=== PATIENT | male | born 1955 | race Caucasian/White ===

== ENCOUNTER 2021-09-11 01:48 | Inpatient (IN) ==
[2021-09-12] MEDS ORDERED: Naloxone 0.4 MG/ML INJ IVP PRN (07:47)
[2021-09-12] MEDS ORDERED: *HR* Heparin 5,000 UNIT/ML VIAL IVP PRN ×2 (07:50)
[2021-09-12] MEDS ORDERED: Dextrose Gel 15 GM/37.5 ML TUBE PO PRN ×2 (07:52)
[2021-09-12] MEDS ORDERED: *HR* Dextrose 50 % in Water (Syg) 50 ML SYRINGE IVP PRN (07:52)
[2021-09-12] MEDS ORDERED: D5% in Water 1,000 ML IVC PRN (07:52)
[2021-09-12 08:51] LABS: Basophils % 0.6 %; Eosinophils # 0.2 K/mcL (0.0-0.6); Eosinophils % 2.8 %; Hematocrit 35.4 % (37.5-50.1); Hemoglobin 12.6 g/dL (12.9-16.9); Immature Granulocytes % 0.3 % (0-4); Lymphocytes # 1.6 K/mcL (0.6-4.6); Lymphocytes % 24.3 %; Mean Corpuscular HGB Conc 35.6 g/dL (31.6-35.5); Mean Corpuscular Hemoglobin 32.9 pg (28.0-33.3); Mean Corpuscular Volume 92.4 fL (83.0-100.0); Mean Platelet Volume 10.9 fL (9.4-12.4); Monocytes # 0.7 K/mcL (0.0-1.3); Monocytes % 11.3 %; Neutrophils # 3.9 K/mcL (1.6-8.9); Platelet Count 189 K/mcL (140-400); Red Blood Count 3.83 M/mcL (4.19-5.50); Red Cell Distribution Width 13.1 % (11.5-14.5); Segmented Neutrophils % 60.7 %; White Blood Count 6.5 K/mcL (4.3-11.1)
[2021-09-12 08:59] LABS: Heparin anti-factor XA UFH 0.35 IU/mL (0.30-0.70)
[2021-09-12 09:00] LABS: INR 1.2; Prothrombin Time 13.7 Seconds (9.4-12.1)
[2021-09-12 09:12] LABS: Alanine Aminotransferase 50 Units/L (7-52); Albumin 4.1 g/dL (3.5-5.7); Albumin/Globulin Ratio 1.8 (1.1-2.2); Alkaline Phosphatase 116 Units/L (34-104); Aspartate Amino Transferase 31 Units/L (13-39); BUN/Creatinine Ratio 18 (6-26); Bilirubin,Total 0.8 mg/dL (0.3-1.0); Blood Urea Nitrogen 12 mg/dL (8-23); Calcium 9.1 mg/dL (8.6-10.3); Carbon Dioxide 26 mEq/L (23-29); Chloride 90 mEq/L (98-107); Globulin 2.3 g/dL (2.4-3.5); Glucose 155 mg/dL (70-105); Magnesium 1.8 mg/dL (1.6-2.6); Osmolality,Calculated 259 (280-300); Phosphorous 3.7 mg/dL (2.7-4.5); Potassium 3.9 mEq/L (3.5-5.1); Sodium 123 mEq/L (136-145); Total Protein 6.4 g/dL (6.4-8.9); eGFR For African Americans > 60 (> 60); eGFR For Non-African Americans > 60 (> 60)
[2021-09-12] MEDS: Heparin 25,000UNIT/250ML 1/2NS 25,000 UNIT/250 ML IV.SOLN IVC SCH ×2 (10:53→22:52)
[2021-09-12] MEDS ORDERED: Perflutren Lipid Microsphere 1.3 ML in 0.9 % Sodium Chloride 8.7 ML IVP PRN (10:59)
[2021-09-12 12:49] LABS: Thyroid Stimulating Hormone 1.362 mcIU/mL (0.340-5.600)
[2021-09-12] MEDS: Insulin LISPRO 300 UNITS/3 ML VIAL SUBQ SCH ×3 (16:05→21:33)
[2021-09-12 17:32] LABS: Adenovirus Not Detected (Not Detect); Bordetella Pertussis Not Detected (Not Detect); Chlamydophila pneumoniae Not Detected (Not Detect); Coronavirus 229E Not Detected (Not Detect); Coronavirus HKU1 Not Detected (Not Detect); Coronavirus NL63 Not Detected (Not Detect); Coronavirus OC43 Not Detected (Not Detect); Human Metapneumovirus Not Detected (Not Detect); Human Rhinovirus/Enterovirus Not Detected (Not Detect); Influenza A Subtype 2009 H1 Not Detected (Not Detect); Influenza B Not Detected (Not Detect); Mycoplasma pneumoniae Not Detected (Not Detect); Parainfluenza Virus 1 Not Detected (Not Detect); Parainfluenza Virus 2 Not Detected (Not Detect); Parainfluenza Virus 3 Not Detected (Not Detect); Parainfluenza Virus 4 Not Detected (Not Detect); Respiratory Syncytial Virus Not Detected (Not Detect); SARS-CoV-2 Not Detected (Not Detect)
[2021-09-12] MEDS: Insulin DETEMIR 100 UNIT/ML X5UNITS SUBQ SCH (21:33)
[2021-09-13 05:03] LABS: Hematocrit 36.6 % (37.5-50.1); Hemoglobin 12.8 g/dL (12.9-16.9); Mean Corpuscular Hemoglobin 32.4 pg (28.0-33.3); Mean Corpuscular Volume 92.7 fL (83.0-100.0); Mean Platelet Volume 11.3 fL (9.4-12.4); Platelet Count 201 K/mcL (140-400); Red Blood Count 3.95 M/mcL (4.19-5.50); Red Cell Distribution Width 13.1 % (11.5-14.5); White Blood Count 7.6 K/mcL (4.3-11.1)
[2021-09-13 05:11] LABS: Heparin anti-factor XA UFH 0.64 IU/mL (0.30-0.70)
[2021-09-13 05:12] LABS: INR 1.3; Prothrombin Time 14.1 Seconds (9.4-12.1)
[2021-09-13 05:26] LABS: BUN/Creatinine Ratio 18 (6-26); Blood Urea Nitrogen 14 mg/dL (8-23); Calcium 9.2 mg/dL (8.6-10.3); Carbon Dioxide 25 mEq/L (23-29); Chloride 91 mEq/L (98-107); Glucose 217 mg/dL (70-105); Osmolality,Calculated 261 (280-300); Potassium 4.8 mEq/L (3.5-5.1); Sodium 122 mEq/L (136-145); eGFR For African Americans > 60 (> 60); eGFR For Non-African Americans > 60 (> 60)
[2021-09-13] MEDS ORDERED: Furosemide 20 MG/2 ML VIAL IVP ONE (08:18)
[2021-09-13] MEDS ORDERED: Amiodarone Premix 150 MG/100 ML BAG IVPB ONE (09:15)
[2021-09-13] MEDS ORDERED: Amiodarone Premix 360 MG/200 ML BAG IVC ONE (09:15)
[2021-09-13] MEDS ORDERED: Furosemide 40 MG/4 ML VIAL IVP ONE (09:17)
[2021-09-13] MEDS ORDERED: Ondansetron 4 MG/2 ML VIAL IVP PRN (09:27)
[2021-09-13] MEDS: Insulin DETEMIR 100 UNIT/ML X5UNITS SUBQ SCH ×2 (10:14→20:58)
[2021-09-13] MEDS: Insulin LISPRO 300 UNITS/3 ML VIAL SUBQ SCH ×4 (10:15→20:56)
[2021-09-13 10:23] LABS: Estimated Average Glucose 246 mg/dl; Hemoglobin A1C 10.2 %
[2021-09-13] MEDS: Heparin 25,000UNIT/250ML 1/2NS 25,000 UNIT/250 ML IV.SOLN IVC SCH (11:11)
[2021-09-13] MEDS ORDERED: *HR* Digoxin 0.5 MG/2 ML AMPUL IVP ONE (11:25)
[2021-09-13] MEDS: Amiodarone Premix 360 MG/200 ML BAG IVC SCH (17:59)
[2021-09-13] MEDS: *HR* Digoxin 0.5 MG/2 ML AMPUL IVP SCH ×2 (17:59→19:04)
[2021-09-13] MEDS: Gabapentin 300 MG CAPSULE PO SCH (20:55)
[2021-09-14] MEDS: Heparin 25,000UNIT/250ML 1/2NS 25,000 UNIT/250 ML IV.SOLN IVC SCH ×2 (00:48→14:39)
[2021-09-14 02:27] LABS: BUN/Creatinine Ratio 22 (6-26); Blood Urea Nitrogen 18 mg/dL (8-23); Calcium 8.9 mg/dL (8.6-10.3); Carbon Dioxide 21 mEq/L (23-29); Chloride 97 mEq/L (98-107); Glucose 229 mg/dL (70-105); Osmolality,Calculated 263 (280-300); Phosphorous 3.7 mg/dL (2.7-4.5); Potassium 4.3 mEq/L (3.5-5.1); Sodium 122 mEq/L (136-145); eGFR For African Americans > 60 (> 60); eGFR For Non-African Americans > 60 (> 60)
[2021-09-14 02:36] LABS: Basophils # 0.1 K/mcL (0.0-0.2); Basophils % 0.7 %; Eosinophils # 0.1 K/mcL (0.0-0.6); Eosinophils % 1.7 %; Hematocrit 35.5 % (37.5-50.1); Hemoglobin 12.2 g/dL (12.9-16.9); Immature Granulocytes % 0.4 % (0-4); Lymphocytes # 1.7 K/mcL (0.6-4.6); Lymphocytes % 23.5 %; Mean Corpuscular HGB Conc 34.4 g/dL (31.6-35.5); Mean Corpuscular Hemoglobin 32.2 pg (28.0-33.3); Mean Corpuscular Volume 93.7 fL (83.0-100.0); Mean Platelet Volume 11.3 fL (9.4-12.4); Monocytes # 0.7 K/mcL (0.0-1.3); Monocytes % 10.3 %; Neutrophils # 4.5 K/mcL (1.6-8.9); Platelet Count 178 K/mcL (140-400); Red Blood Count 3.79 M/mcL (4.19-5.50); Red Cell Distribution Width 13.1 % (11.5-14.5); Segmented Neutrophils % 63.4 %; White Blood Count 7.1 K/mcL (4.3-11.1)
[2021-09-14] MEDS: Amiodarone Premix 360 MG/200 ML BAG IVC SCH ×2 (06:52→20:07)
[2021-09-14] MEDS: *HR* Digoxin 0.25 MG TABLET PO SCH (09:46)
[2021-09-14] MEDS: Furosemide 40 MG/4 ML VIAL IVP SCH (09:46)
[2021-09-14] MEDS: Gabapentin 300 MG CAPSULE PO SCH ×2 (09:46→20:02)
[2021-09-14] MEDS: Insulin LISPRO 300 UNITS/3 ML VIAL SUBQ SCH ×5 (09:50→20:17)
[2021-09-14] MEDS: Insulin DETEMIR 100 UNIT/ML X5UNITS SUBQ SCH ×2 (09:52→20:03)
[2021-09-14] MEDS ORDERED: Metoprolol XL (24 HR) Succ 25 MG TAB.ER.24H PO SCH (10:15)
[2021-09-14] MEDS: *HR* Amiodarone 200 MG TABLET PO SCH ×2 (11:49→20:02)
[2021-09-14] MEDS: Metoprolol XL (24 HR) Succ 25 MG TAB.ER.24H PO SCH (20:02)
[2021-09-15] MEDS: Heparin 25,000UNIT/250ML 1/2NS 25,000 UNIT/250 ML IV.SOLN IVC SCH ×2 (03:05→16:54)
[2021-09-15 07:20] LABS: Hemoglobin 11.6 g/dL (12.9-16.9)
[2021-09-15 07:40] LABS: BUN/Creatinine Ratio 19 (6-26); Blood Urea Nitrogen 15 mg/dL (8-23); Calcium 8.9 mg/dL (8.6-10.3); Carbon Dioxide 24 mEq/L (23-29); Chloride 94 mEq/L (98-107); Glucose 190 mg/dL (70-105); Magnesium 1.9 mg/dL (1.6-2.6); Osmolality,Calculated 268 (280-300); Phosphorous 3.8 mg/dL (2.7-4.5); Potassium 4.3 mEq/L (3.5-5.1); Sodium 126 mEq/L (136-145); eGFR For African Americans > 60 (> 60); eGFR For Non-African Americans > 60 (> 60)
[2021-09-15] MEDS: Amiodarone Premix 360 MG/200 ML BAG IVC SCH ×2 (08:56→22:12)
[2021-09-15] MEDS: Gabapentin 300 MG CAPSULE PO SCH ×2 (08:56→22:12)
[2021-09-15] MEDS: *HR* Digoxin 0.25 MG TABLET PO SCH (08:56)
[2021-09-15] MEDS: *HR* Amiodarone 200 MG TABLET PO SCH ×2 (08:56→22:11)
[2021-09-15] MEDS: Metoprolol XL (24 HR) Succ 25 MG TAB.ER.24H PO SCH (08:56)
[2021-09-15] MEDS: Furosemide 40 MG/4 ML VIAL IVP SCH (08:56)
[2021-09-15] MEDS: Insulin LISPRO 300 UNITS/3 ML VIAL SUBQ SCH ×7 (09:00→22:11)
[2021-09-15] MEDS: Insulin DETEMIR 100 UNIT/ML X5UNITS SUBQ SCH ×2 (09:00→22:11)
[2021-09-15] MEDS ORDERED: Metoprolol XL (24 HR) Succ 25 MG TAB.ER.24H PO ONE (11:00)
[2021-09-15] MEDS ORDERED: *HR* Warfarin 5 MG TABLET PO ONE (18:00)
[2021-09-15] MEDS: Warfarin perPT PO SCH (18:26)
[2021-09-15] MEDS: Melatonin 3 MG TABLET PO PRN (22:11)
[2021-09-16 01:08] LABS: Hematocrit 32.5 % (37.5-50.1); Hemoglobin 11.3 g/dL (12.9-16.9)
[2021-09-16 01:15] LABS: INR 1.4; Prothrombin Time 15.1 Seconds (9.4-12.1)
[2021-09-16 01:27] LABS: BUN/Creatinine Ratio 16 (6-26); Blood Urea Nitrogen 15 mg/dL (8-23); Calcium 8.8 mg/dL (8.6-10.3); Carbon Dioxide 22 mEq/L (23-29); Chloride 95 mEq/L (98-107); Glucose 284 mg/dL (70-105); Magnesium 1.9 mg/dL (1.6-2.6); Osmolality,Calculated 271 (280-300); Phosphorous 4.2 mg/dL (2.7-4.5); Potassium 4.2 mEq/L (3.5-5.1); Sodium 125 mEq/L (136-145); eGFR For African Americans > 60 (> 60); eGFR For Non-African Americans > 60 (> 60)
[2021-09-16] MEDS: Heparin 25,000UNIT/250ML 1/2NS 25,000 UNIT/250 ML IV.SOLN IVC SCH ×2 (05:18→18:05)
[2021-09-16] MEDS: Gabapentin 300 MG CAPSULE PO SCH ×2 (08:23→20:57)
[2021-09-16] MEDS: *HR* Digoxin 0.25 MG TABLET PO SCH (08:24)
[2021-09-16] MEDS: Furosemide 40 MG/4 ML VIAL IVP SCH (08:24)
[2021-09-16] MEDS: Insulin LISPRO 300 UNITS/3 ML VIAL SUBQ SCH ×7 (08:24→20:58)
[2021-09-16] MEDS: *HR* Amiodarone 200 MG TABLET PO SCH ×2 (08:24→20:57)
[2021-09-16] MEDS: Insulin DETEMIR 100 UNIT/ML X5UNITS SUBQ SCH ×2 (08:32→20:58)
[2021-09-16] MEDS ORDERED: Metoprolol XL (24 HR) Succ 25 MG TAB.ER.24H PO SCH (09:00)
[2021-09-16] MEDS: Amiodarone Premix 360 MG/200 ML BAG IVC SCH (14:20)
[2021-09-16] MEDS ORDERED: *HR* Warfarin 5 MG TABLET PO ONE (18:00)
[2021-09-16] MEDS: Warfarin perPT PO SCH (18:13)
[2021-09-16] MEDS: Metoprolol XL (24 HR) Succ 25 MG TAB.ER.24H PO SCH (20:57)
[2021-09-16] MEDS: Melatonin 3 MG TABLET PO PRN (20:57)
[2021-09-17 01:47] LABS: Hematocrit 33.6 % (37.5-50.1); Hemoglobin 11.7 g/dL (12.9-16.9)
[2021-09-17 01:58] LABS: Heparin anti-factor XA UFH 0.38 IU/mL (0.30-0.70); INR 1.2; Prothrombin Time 13.5 Seconds (9.4-12.1)
[2021-09-17 01:59] LABS: BUN/Creatinine Ratio 18 (6-26); Blood Urea Nitrogen 15 mg/dL (8-23); Calcium 8.9 mg/dL (8.6-10.3); Carbon Dioxide 26 mEq/L (23-29); Chloride 93 mEq/L (98-107); Glucose 278 mg/dL (70-105); Magnesium 1.8 mg/dL (1.6-2.6); Osmolality,Calculated 273 (280-300); Phosphorous 4.2 mg/dL (2.7-4.5); Potassium 4.3 mEq/L (3.5-5.1); Sodium 126 mEq/L (136-145); eGFR For African Americans > 60 (> 60); eGFR For Non-African Americans > 60 (> 60)
[2021-09-17] MEDS: Gabapentin 300 MG CAPSULE PO SCH ×2 (09:00→21:14)
[2021-09-17] MEDS: *HR* Amiodarone 200 MG TABLET PO SCH ×2 (09:01→21:13)
[2021-09-17] MEDS: *HR* Digoxin 0.25 MG TABLET PO SCH (09:01)
[2021-09-17] MEDS: Furosemide 40 MG/4 ML VIAL IVP SCH (09:01)
[2021-09-17] MEDS: Metoprolol XL (24 HR) Succ 25 MG TAB.ER.24H PO SCH ×2 (09:01→21:13)
[2021-09-17] MEDS: Insulin LISPRO 300 UNITS/3 ML VIAL SUBQ SCH ×7 (09:02→21:16)
[2021-09-17] MEDS: Insulin DETEMIR 100 UNIT/ML X5UNITS SUBQ SCH ×2 (09:02→21:14)
[2021-09-17] MEDS ORDERED: Metoprolol XL (24 HR) Succ 25 MG TAB.ER.24H PO ONE (11:03)
[2021-09-17] MEDS: Heparin 25,000UNIT/250ML 1/2NS 25,000 UNIT/250 ML IV.SOLN IVC SCH (12:21)
[2021-09-17] MEDS: Amiodarone Premix 360 MG/200 ML BAG IVC SCH (13:09)
[2021-09-17] MEDS ORDERED: *HR* Warfarin 5 MG TABLET PO ONE (18:00)
[2021-09-17] MEDS: Warfarin perPT PO SCH (18:36)
[2021-09-18] MEDS: Heparin 25,000UNIT/250ML 1/2NS 25,000 UNIT/250 ML IV.SOLN IVC SCH ×2 (00:42→17:32)
[2021-09-18] MEDS: Amiodarone Premix 360 MG/200 ML BAG IVC SCH ×2 (03:39→16:37)
[2021-09-18 07:20] LABS: INR 1.3; Prothrombin Time 14.5 Seconds (9.4-12.1)
[2021-09-18 07:30] LABS: BUN/Creatinine Ratio 20 (6-26); Blood Urea Nitrogen 17 mg/dL (8-23); Calcium 9.1 mg/dL (8.6-10.3); Carbon Dioxide 24 mEq/L (23-29); Chloride 93 mEq/L (98-107); Glucose 161 mg/dL (70-105); Magnesium 1.9 mg/dL (1.6-2.6); Osmolality,Calculated 265 (280-300); Phosphorous 4.2 mg/dL (2.7-4.5); Potassium 4.5 mEq/L (3.5-5.1); Sodium 125 mEq/L (136-145); eGFR For African Americans > 60 (> 60); eGFR For Non-African Americans > 60 (> 60)
[2021-09-18] MEDS: Insulin DETEMIR 100 UNIT/ML X5UNITS SUBQ SCH ×2 (08:56→21:04)
[2021-09-18] MEDS: Furosemide 40 MG/4 ML VIAL IVP SCH ×2 (08:56→21:04)
[2021-09-18] MEDS: Gabapentin 300 MG CAPSULE PO SCH ×2 (08:57→21:00)
[2021-09-18] MEDS: *HR* Amiodarone 200 MG TABLET PO SCH ×2 (08:57→21:04)
[2021-09-18] MEDS: *HR* Digoxin 0.25 MG TABLET PO SCH (08:57)
[2021-09-18] MEDS: Metoprolol XL (24 HR) Succ 25 MG TAB.ER.24H PO SCH ×2 (08:57→21:00)
[2021-09-18] MEDS: Insulin LISPRO 300 UNITS/3 ML VIAL SUBQ SCH ×6 (09:03→16:38)
[2021-09-18] MEDS ORDERED: Metoprolol XL (24 HR) Succ 25 MG TAB.ER.24H PO ONE (09:54)
[2021-09-18] MEDS: Warfarin perPT PO SCH (17:55)
[2021-09-18] MEDS ORDERED: *HR* Warfarin 7.5 MG TABLET PO ONE (18:00)
[2021-09-19] MEDS: Insulin LISPRO 300 UNITS/3 ML VIAL SUBQ SCH ×8 (05:35→21:16)
[2021-09-19] MEDS: Amiodarone Premix 360 MG/200 ML BAG IVC SCH ×2 (06:42→20:11)
[2021-09-19] MEDS: Heparin 25,000UNIT/250ML 1/2NS 25,000 UNIT/250 ML IV.SOLN IVC SCH ×2 (08:13→23:45)
[2021-09-19] MEDS: *HR* Digoxin 0.25 MG TABLET PO SCH (08:15)
[2021-09-19] MEDS: *HR* Amiodarone 200 MG TABLET PO SCH ×2 (08:15→21:06)
[2021-09-19] MEDS: Gabapentin 300 MG CAPSULE PO SCH ×2 (08:15→21:05)
[2021-09-19] MEDS: Furosemide 40 MG/4 ML VIAL IVP SCH ×2 (08:15→23:50)
[2021-09-19] MEDS: Insulin DETEMIR 100 UNIT/ML X5UNITS SUBQ SCH ×2 (08:15→21:41)
[2021-09-19] MEDS: Metoprolol XL (24 HR) Succ 25 MG TAB.ER.24H PO SCH ×2 (08:15→21:05)
[2021-09-19 08:54] LABS: Hematocrit 37.3 % (37.5-50.1); Hemoglobin 12.5 g/dL (12.9-16.9)
[2021-09-19 09:00] LABS: INR 1.3; Prothrombin Time 14.9 Seconds (9.4-12.1)
[2021-09-19 09:13] LABS: BUN/Creatinine Ratio 20 (6-26); Blood Urea Nitrogen 20 mg/dL (8-23); Calcium 9.5 mg/dL (8.6-10.3); Carbon Dioxide 26 mEq/L (23-29); Chloride 94 mEq/L (98-107); Glucose 162 mg/dL (70-105); Magnesium 1.8 mg/dL (1.6-2.6); Osmolality,Calculated 272 (280-300); Phosphorous 4.4 mg/dL (2.7-4.5); Potassium 4.6 mEq/L (3.5-5.1); Sodium 128 mEq/L (136-145); eGFR For African Americans > 60 (> 60); eGFR For Non-African Americans > 60 (> 60)
[2021-09-19] MEDS ORDERED: Lidocaine Viscous Oral Soln 15 ML SOLUTION MM PRN (13:47)
[2021-09-19] MEDS ORDERED: 0.9 % Sodium Chloride 500 ML IVC ONE (13:47)
[2021-09-19] MEDS: *HR* Midazolam HCl 5 MG/5 ML VIAL IVP PRN ×3 (14:10→14:20)
[2021-09-19] MEDS: *HR* FentaNYL (PF) 100 MCG/2 ML VIAL IVP PRN ×2 (14:10→14:20)
[2021-09-19] MEDS ORDERED: *HR* Warfarin 7.5 MG TABLET PO ONE (18:00)
[2021-09-19] MEDS: Warfarin perPT PO SCH (20:11)
[2021-09-20] MEDS: *HR* Digoxin 0.25 MG TABLET PO SCH (08:38)
[2021-09-20] MEDS: Gabapentin 300 MG CAPSULE PO SCH ×2 (08:38→21:22)
[2021-09-20] MEDS: *HR* Amiodarone 200 MG TABLET PO SCH (08:41)
[2021-09-20] MEDS: Metoprolol XL (24 HR) Succ 25 MG TAB.ER.24H PO SCH (08:42)
[2021-09-20] MEDS: Furosemide 40 MG/4 ML VIAL IVP SCH ×2 (08:42→21:22)
[2021-09-20] MEDS: Amiodarone Premix 360 MG/200 ML BAG IVC SCH ×2 (08:43→12:26)
[2021-09-20 08:58] LABS: Hemoglobin 12.2 g/dL (12.9-16.9)
[2021-09-20 08:59] LABS: Basophils # 0.1 K/mcL (0.0-0.2); Basophils % 0.8 %; Eosinophils # 0.1 K/mcL (0.0-0.6); Immature Granulocytes % 0.3 % (0-4); Immature Platelets 10.9 % (1.1-6.1); Lymphocytes # 1.6 K/mcL (0.6-4.6); Mean Corpuscular HGB Conc 33.9 g/dL (31.6-35.5); Mean Corpuscular Volume 94.5 fL (83.0-100.0); Mean Platelet Volume 11.1 fL (9.4-12.4); Monocytes # 1.1 K/mcL (0.0-1.3); Monocytes % 12.2 %; Neutrophils # 6.1 K/mcL (1.6-8.9); Red Blood Count 3.81 M/mcL (4.19-5.50); Red Cell Distribution Width 13.4 % (11.5-14.5); Segmented Neutrophils % 67.7 %
[2021-09-20 09:08] LABS: Heparin anti-factor XA UFH 0.43 IU/mL (0.30-0.70)
[2021-09-20 09:09] LABS: INR 1.5; Prothrombin Time 16.9 Seconds (9.4-12.1)
[2021-09-20 09:10] LABS: BUN/Creatinine Ratio 22 (6-26); Blood Urea Nitrogen 20 mg/dL (8-23); Calcium 9.2 mg/dL (8.6-10.3); Carbon Dioxide 30 mEq/L (23-29); Chloride 92 mEq/L (98-107); Glucose 231 mg/dL (70-105); Osmolality,Calculated 276 (280-300); Potassium 4.4 mEq/L (3.5-5.1); Sodium 128 mEq/L (136-145); eGFR For African Americans > 60 (> 60); eGFR For Non-African Americans > 60 (> 60)
[2021-09-20 09:21] LABS: Platelet Count 78 K/mcL (140-400)
[2021-09-20 09:22] LABS: Platelet Estimate Decreased (Normal)
[2021-09-20] MEDS ORDERED: Metoprolol XL (24 HR) Succ 25 MG TAB.ER.24H PO ONE (10:08)
[2021-09-20] MEDS: Insulin LISPRO 300 UNITS/3 ML VIAL SUBQ SCH ×4 (12:56→21:23)
[2021-09-20] MEDS: Heparin 25,000UNIT/250ML 1/2NS 25,000 UNIT/250 ML IV.SOLN IVC SCH (14:46)
[2021-09-20] MEDS ORDERED: *HR* Warfarin 7.5 MG TABLET PO ONE (18:00)
[2021-09-20] MEDS: Warfarin perPT PO SCH (18:44)
[2021-09-20] MEDS: Metoprolol XL (24 HR) Succ 50 MG TAB.ER.24H PO SCH (21:22)
[2021-09-20] MEDS: Melatonin 3 MG TABLET PO PRN (21:22)
[2021-09-20] MEDS: Insulin DETEMIR 100 UNIT/ML X5UNITS SUBQ SCH (21:23)
[2021-09-21 01:48] LABS: Basophils # 0.1 K/mcL (0.0-0.2); Basophils % 0.7 %; Eosinophils # 0.2 K/mcL (0.0-0.6); Eosinophils % 1.9 %; Hematocrit 33.2 % (37.5-50.1); Hemoglobin 11.4 g/dL (12.9-16.9); Immature Granulocytes % 0.2 % (0-4); Lymphocytes # 1.4 K/mcL (0.6-4.6); Lymphocytes % 16.4 %; Mean Corpuscular HGB Conc 34.3 g/dL (31.6-35.5); Mean Corpuscular Hemoglobin 31.8 pg (28.0-33.3); Mean Corpuscular Volume 92.7 fL (83.0-100.0); Monocytes # 1.1 K/mcL (0.0-1.3); Monocytes % 12.8 %; Neutrophils # 5.8 K/mcL (1.6-8.9); Red Blood Count 3.58 M/mcL (4.19-5.50); Red Cell Distribution Width 13.2 % (11.5-14.5); White Blood Count 8.5 K/mcL (4.3-11.1)
[2021-09-21 01:50] LABS: Platelet Count 71 K/mcL (140-400)
[2021-09-21 01:56] LABS: INR 1.4; Prothrombin Time 15.3 Seconds (9.4-12.1)
[2021-09-21 02:08] LABS: BUN/Creatinine Ratio 26 (6-26); Blood Urea Nitrogen 23 mg/dL (8-23); Calcium 8.7 mg/dL (8.6-10.3); Carbon Dioxide 23 mEq/L (23-29); Chloride 92 mEq/L (98-107); Glucose 352 mg/dL (70-105); Osmolality,Calculated 270 (280-300); Potassium 4.1 mEq/L (3.5-5.1); Sodium 121 mEq/L (136-145); eGFR For African Americans > 60 (> 60); eGFR For Non-African Americans > 60 (> 60)
[2021-09-21] MEDS: Heparin 25,000UNIT/250ML 1/2NS 25,000 UNIT/250 ML IV.SOLN IVC SCH (06:12)
[2021-09-21] MEDS: Insulin DETEMIR 100 UNIT/ML X5UNITS SUBQ SCH ×2 (09:16→20:12)
[2021-09-21] MEDS: Gabapentin 300 MG CAPSULE PO SCH ×2 (09:16→20:04)
[2021-09-21] MEDS: Metoprolol XL (24 HR) Succ 50 MG TAB.ER.24H PO SCH ×2 (09:16→20:04)
[2021-09-21] MEDS: *HR* Digoxin 0.25 MG TABLET PO SCH (09:17)
[2021-09-21] MEDS: Insulin LISPRO 300 UNITS/3 ML VIAL SUBQ SCH ×3 (09:17→20:05)
[2021-09-21] MEDS ORDERED: Furosemide 40 MG TABLET PO SCH (10:45)
[2021-09-21 11:35] LABS: Albumin 3.8 g/dL (3.5-5.7); Albumin/Globulin Ratio 1.4 (1.1-2.2); Bilirubin,Direct 0.3 mg/dL (0.0-0.2); Bilirubin,Indirect 0.7 mg/dL (0.0-1.0); Globulin 2.7 g/dL (2.4-3.5); Total Protein 6.5 g/dL (6.4-8.9)
[2021-09-21] MEDS: Argatroban 250 MG in 0.9 % Sodium Chloride 250 ML IVC SCH (11:45)
[2021-09-21] MEDS ORDERED: *HR* Warfarin 10 MG TABLET PO ONE (18:00)
[2021-09-21] MEDS: Warfarin perPT PO SCH (20:10)
[2021-09-22] MEDS: Insulin LISPRO 300 UNITS/3 ML VIAL SUBQ SCH ×6 (00:45→21:26)
[2021-09-22 04:39] LABS: Basophils % 0.7 %; Hemoglobin 10.9 g/dL (12.9-16.9); Mean Corpuscular Volume 90.6 fL (83.0-100.0); Mean Platelet Volume 11.4 fL (9.4-12.4)
[2021-09-22 04:42] LABS: Basophils # 0.1 K/mcL (0.0-0.2); Eosinophils # 0.2 K/mcL (0.0-0.6); Eosinophils % 2.7 %; Hematocrit 30.9 % (37.5-50.1); Immature Granulocytes % 0.4 % (0-4); Immature Platelets 10.2 % (1.1-6.1); Lymphocytes # 1.7 K/mcL (0.6-4.6); Lymphocytes % 20.2 %; Mean Corpuscular HGB Conc 35.3 g/dL (31.6-35.5); Neutrophils # 5.3 K/mcL (1.6-8.9); Red Blood Count 3.41 M/mcL (4.19-5.50); Red Cell Distribution Width 12.9 % (11.5-14.5); White Blood Count 8.3 K/mcL (4.3-11.1)
[2021-09-22 04:53] LABS: INR 2.3
[2021-09-22 04:54] LABS: Platelet Count 89 K/mcL (140-400)
[2021-09-22 04:57] LABS: BUN/Creatinine Ratio 23 (6-26); Blood Urea Nitrogen 20 mg/dL (8-23); Calcium 8.7 mg/dL (8.6-10.3); Carbon Dioxide 26 mEq/L (23-29); Chloride 96 mEq/L (98-107); Glucose 197 mg/dL (70-105); Osmolality,Calculated 268 (280-300); Potassium 4.1 mEq/L (3.5-5.1); Sodium 125 mEq/L (136-145); eGFR For African Americans > 60 (> 60); eGFR For Non-African Americans > 60 (> 60)
[2021-09-22] MEDS: *HR* Digoxin 0.25 MG TABLET PO SCH (07:15)
[2021-09-22] MEDS: Gabapentin 300 MG CAPSULE PO SCH ×2 (07:15→21:25)
[2021-09-22] MEDS: Furosemide 20 MG TABLET PO SCH ×2 (07:16→18:22)
[2021-09-22] MEDS: Insulin DETEMIR 100 UNIT/ML X5UNITS SUBQ SCH ×3 (07:16→21:26)
[2021-09-22] MEDS: Metoprolol XL (24 HR) Succ 50 MG TAB.ER.24H PO SCH ×2 (07:16→21:25)
[2021-09-22] MEDS: Argatroban 250 MG in 0.9 % Sodium Chloride 250 ML IVC SCH (09:07)
[2021-09-22] MEDS ORDERED: Tolvaptan 15 MG TABLET PO ONE (10:00)
[2021-09-22] MEDS: Sacubitril/Valsartan 24/26 MG 1 TABLET PO SCH ×2 (12:50→21:25)
[2021-09-22] MEDS ORDERED: *HR* Warfarin 7.5 MG TABLET PO ONE (18:15)
[2021-09-22] MEDS: Warfarin perPT PO SCH (18:22)
[2021-09-22] MEDS: Melatonin 3 MG TABLET PO PRN (21:25)
[2021-09-23] MEDS: Argatroban 250 MG in 0.9 % Sodium Chloride 250 ML IVC SCH (02:39)
[2021-09-23 05:42] LABS: Basophils % 0.5 %; Eosinophils # 0.2 K/mcL (0.0-0.6); Eosinophils % 2.6 %; Hemoglobin 11.4 g/dL (12.9-16.9); Immature Granulocytes % 0.3 % (0-4); Lymphocytes # 1.4 K/mcL (0.6-4.6); Lymphocytes % 19.5 %; Mean Corpuscular HGB Conc 34.5 g/dL (31.6-35.5); Mean Corpuscular Hemoglobin 31.4 pg (28.0-33.3); Mean Corpuscular Volume 90.9 fL (83.0-100.0); Mean Platelet Volume 11.2 fL (9.4-12.4); Monocytes # 0.8 K/mcL (0.0-1.3); Monocytes % 10.4 %; Neutrophils # 4.9 K/mcL (1.6-8.9); Platelet Count 121 K/mcL (140-400); Red Blood Count 3.63 M/mcL (4.19-5.50); Segmented Neutrophils % 66.7 %; White Blood Count 7.4 K/mcL (4.3-11.1)
[2021-09-23 05:56] LABS: INR 2.4; Prothrombin Time 26.9 Seconds (9.4-12.1)
[2021-09-23] MEDS: Furosemide 20 MG TABLET PO SCH ×2 (07:00→19:31)
[2021-09-23 08:57] LABS: BUN/Creatinine Ratio 21 (6-26); Blood Urea Nitrogen 20 mg/dL (8-23); Calcium 8.9 mg/dL (8.6-10.3); Carbon Dioxide 23 mEq/L (23-29); Chloride 101 mEq/L (98-107); Glucose 299 mg/dL (70-105); Osmolality,Calculated 290 (280-300); Potassium 4.6 mEq/L (3.5-5.1); Sodium 133 mEq/L (136-145); eGFR For African Americans > 60 (> 60); eGFR For Non-African Americans > 60 (> 60)
[2021-09-23] MEDS: Sacubitril/Valsartan 24/26 MG 1 TABLET PO SCH ×2 (10:05→19:31)
[2021-09-23] MEDS: Gabapentin 300 MG CAPSULE PO SCH ×2 (10:05→19:31)
[2021-09-23] MEDS: *HR* Digoxin 0.125 MG TABLET PO SCH (10:05)
[2021-09-23] MEDS: Metoprolol XL (24 HR) Succ 50 MG TAB.ER.24H PO SCH ×2 (10:05→19:31)
[2021-09-23] MEDS: Insulin DETEMIR 100 UNIT/ML X5UNITS SUBQ SCH ×2 (10:06→19:31)
[2021-09-23] MEDS: Insulin LISPRO 300 UNITS/3 ML VIAL SUBQ SCH ×4 (10:14→20:49)
[2021-09-23] MEDS ORDERED: *HR* Warfarin 5 MG TABLET PO ONE (18:00)
[2021-09-23 18:24] LABS: INR 1.5; Prothrombin Time 16.7 Seconds (9.4-12.1)
[2021-09-23] MEDS: Warfarin perPT PO SCH (19:33)
[2021-09-23] MEDS ORDERED: *HR* Fondaparinux 7.5 MG/0.6 ML SYRINGE SQ SCH (20:00)
[2021-09-23] MEDS ORDERED: *HR* Fondaparinux 2.5 MG/0.5 ML SYRINGE SQ SCH (20:00)
[2021-09-24 05:12] VITALS: TEMP 98.2
[2021-09-24] MEDS: Furosemide 20 MG TABLET PO SCH (05:55)
[2021-09-24 09:11] LABS: Basophils # 0.1 K/mcL (0.0-0.2); Basophils % 0.8 %; Eosinophils # 0.2 K/mcL (0.0-0.6); Eosinophils % 2.8 %; Hematocrit 34.2 % (37.5-50.1); Hemoglobin 11.8 g/dL (12.9-16.9); Immature Granulocytes % 0.2 % (0-4); Lymphocytes # 1.9 K/mcL (0.6-4.6); Lymphocytes % 22.1 %; Mean Corpuscular HGB Conc 34.5 g/dL (31.6-35.5); Mean Corpuscular Hemoglobin 32.5 pg (28.0-33.3); Mean Corpuscular Volume 94.2 fL (83.0-100.0); Mean Platelet Volume 11.8 fL (9.4-12.4); Monocytes # 0.9 K/mcL (0.0-1.3); Monocytes % 9.8 %; Neutrophils # 5.5 K/mcL (1.6-8.9); Platelet Count 151 K/mcL (140-400); Red Blood Count 3.63 M/mcL (4.19-5.50); Segmented Neutrophils % 64.3 %; White Blood Count 8.6 K/mcL (4.3-11.1)
[2021-09-24 09:16] LABS: INR 1.5; Prothrombin Time 17.1 Seconds (9.4-12.1)
[2021-09-24 09:32] LABS: BUN/Creatinine Ratio 20 (6-26); Blood Urea Nitrogen 19 mg/dL (8-23); Carbon Dioxide 26 mEq/L (23-29); Chloride 97 mEq/L (98-107); Glucose 274 mg/dL (70-105); Osmolality,Calculated 282 (280-300); Potassium 4.4 mEq/L (3.5-5.1); Sodium 130 mEq/L (136-145); eGFR For African Americans > 60 (> 60); eGFR For Non-African Americans > 60 (> 60)
[2021-09-24] MEDS: Metoprolol XL (24 HR) Succ 50 MG TAB.ER.24H PO SCH (09:41)
[2021-09-24] MEDS: *HR* Digoxin 0.125 MG TABLET PO SCH (09:41)
[2021-09-24] MEDS: Gabapentin 300 MG CAPSULE PO SCH (09:42)
[2021-09-24] MEDS: Sacubitril/Valsartan 24/26 MG 1 TABLET PO SCH (09:42)
[2021-09-24] MEDS: Insulin LISPRO 300 UNITS/3 ML VIAL SUBQ SCH ×2 (09:42→14:18)
[2021-09-24] MEDS: Insulin DETEMIR 100 UNIT/ML X5UNITS SUBQ SCH (09:54)
[2021-09-24 12:04] VITALS: BP 100/70; PULSE 90; O2SAT 98
[2021-09-26 09:20] LABS: Alpha 2 Globulin (PEP) 0.83 g/dL (0.48-1.05); Beta Globulin (PEP) 0.76 g/dL (0.48-1.10)
[2021-09-26 10:07] LABS: IFE Reflexed IFE Done
[2021-09-26 10:08] LABS: Immunoglobulin A 195 mg/dL (68-408); Immunoglobulin G 711 mg/dL (768-1632); Immunoglobulin M 59 mg/dL (35-263)
== END 2021-09-24 13:00 | disposition home or self-care (01) | DRG 175 ==
LOC: 3NENU → SUATTDRO 09-12 07:40
PROVIDERS: ADMIT Internal Medicine; ATTEND Internal Medicine

== ENCOUNTER 2022-01-28 14:24 | Inpatient (IN) ==
[2022-01-28] MEDS ORDERED: Acetaminophen 325 MG TABLET PO PRN (17:22)
[2022-01-28] MEDS ORDERED: Naloxone 0.4 MG/ML INJ IVP PRN (17:22)
[2022-01-28] MEDS ORDERED: Melatonin 3 MG TABLET PO PRN (17:22)
[2022-01-28] MEDS ORDERED: D5% in Water 1,000 ML IVC PRN (18:00)
[2022-01-28] MEDS ORDERED: Dextrose Gel 15 GM/37.5 ML TUBE PO PRN ×2 (18:00)
[2022-01-28] MEDS ORDERED: *HR* Dextrose 50 % in Water (Syg) 50 ML SYRINGE IVP PRN (18:00)
[2022-01-28] MEDS ORDERED: Perflutren Lipid Microsphere 1.3 ML in 0.9 % Sodium Chloride 8.7 ML IVP PRN (18:06)
[2022-01-28] MEDS: Insulin LISPRO 300 UNITS/3 ML VIAL SUBQ SCH (18:54)
[2022-01-28] MEDS ORDERED: Insulin DETEMIR 100 UNIT/ML X5UNITS SUBQ SCH (21:00)
[2022-01-28] MEDS: Apixaban 5 MG TABLET PO SCH (21:36)
[2022-01-28] MEDS: Metoprolol XL (24 HR) Succ 25 MG TAB.ER.24H PO SCH (21:36)
[2022-01-28] MEDS: Gabapentin 300 MG CAPSULE PO SCH (21:36)
[2022-01-29 06:16] LABS: Basophils % 0.8 %; Eosinophils # 0.1 K/mcL (0.0-0.6); Eosinophils % 2.7 %; Hematocrit 31.8 % (37.5-50.1); Immature Granulocytes % 0.2 % (0-4); Lymphocytes # 1.8 K/mcL (0.6-4.6); Lymphocytes % 33.9 %; Mean Corpuscular HGB Conc 34.6 g/dL (31.6-35.5); Mean Corpuscular Hemoglobin 32.1 pg (28.0-33.3); Mean Corpuscular Volume 92.7 fL (83.0-100.0); Mean Platelet Volume 11.4 fL (9.4-12.4); Monocytes # 0.6 K/mcL (0.0-1.3); Neutrophils # 2.7 K/mcL (1.6-8.9); Platelet Count 180 K/mcL (140-400); Red Blood Count 3.43 M/mcL (4.19-5.50); Red Cell Distribution Width 12.9 % (11.5-14.5); Segmented Neutrophils % 51.4 %; White Blood Count 5.2 K/mcL (4.3-11.1)
[2022-01-29 06:33] LABS: INR 1.4; Prothrombin Time 15.9 Seconds (9.4-12.1)
[2022-01-29 06:36] LABS: Alanine Aminotransferase 47 Units/L (7-52); Albumin/Globulin Ratio 1.7 (1.1-2.2); Alkaline Phosphatase 128 Units/L (34-104); Aspartate Amino Transferase 30 Units/L (13-39); BUN/Creatinine Ratio 24 (6-26); Bilirubin,Total 0.5 mg/dL (0.3-1.0); Blood Urea Nitrogen 17 mg/dL (8-23); Calcium 9.3 mg/dL (8.6-10.3); Carbon Dioxide 26 mEq/L (23-29); Chloride 102 mEq/L (98-107); Globulin 2.4 g/dL (2.4-3.5); Glucose 73 mg/dL (70-105); Osmolality,Calculated 284 (280-300); Potassium 3.7 mEq/L (3.5-5.1); Sodium 137 mEq/L (136-145); Total Protein 6.4 g/dL (6.4-8.9); eGFR For African Americans > 60 (> 60); eGFR For Non-African Americans > 60 (> 60)
[2022-01-29] MEDS: Insulin LISPRO 300 UNITS/3 ML VIAL SUBQ SCH ×3 (07:38→17:43)
[2022-01-29] MEDS: Spironolactone 12.5 MG TABLET PO SCH (08:16)
[2022-01-29] MEDS: Metoprolol XL (24 HR) Succ 25 MG TAB.ER.24H PO SCH (08:16)
[2022-01-29] MEDS: Gabapentin 300 MG CAPSULE PO SCH ×2 (08:16→19:54)
[2022-01-29] MEDS: Apixaban 5 MG TABLET PO SCH (08:16)
[2022-01-29] MEDS: Furosemide 20 MG TABLET PO SCH (08:16)
[2022-01-29] MEDS: *HR* Digoxin 0.125 MG TABLET PO SCH (08:17)
[2022-01-29] MEDS ORDERED: *HR* Digoxin 0.5 MG/2 ML AMPUL IVP ONE (12:24)
[2022-01-29] MEDS ORDERED: Amiodarone Premix 150 MG/100 ML BAG IVPB ONE (12:25)
[2022-01-29] MEDS ORDERED: *HR* Heparin 5,000 UNIT/ML VIAL IVP PRN ×2 (12:26)
[2022-01-29] MEDS ORDERED: Amiodarone Premix 360 MG/200 ML BAG IVC ONE (12:28)
[2022-01-29] MEDS: Heparin 25,000UNIT/250ML 1/2NS 25,000 UNIT/250 ML IV.SOLN IVC SCH (13:28)
[2022-01-29 13:33] LABS: Hematocrit 35.7 % (37.5-50.1); Hemoglobin 12.1 g/dL (12.9-16.9); Mean Corpuscular HGB Conc 33.9 g/dL (31.6-35.5); Mean Corpuscular Hemoglobin 31.3 pg (28.0-33.3); Mean Corpuscular Volume 92.5 fL (83.0-100.0); Mean Platelet Volume 11.4 fL (9.4-12.4); Platelet Count 212 K/mcL (140-400); Red Blood Count 3.86 M/mcL (4.19-5.50); Red Cell Distribution Width 12.9 % (11.5-14.5); White Blood Count 7.5 K/mcL (4.3-11.1)
[2022-01-29 15:03] LABS: INR 1.5; Prothrombin Time 17.1 Seconds (9.4-12.1)
[2022-01-29 15:05] LABS: Activated Partial Thrombo Time 34.8 Seconds (26.0-36.0)
[2022-01-29 15:25] LABS: Heparin anti-factor XA UFH 1.2 IU/mL (0.30-0.70)
[2022-01-29] MEDS: Amiodarone Premix 360 MG/200 ML BAG IVC SCH (22:18)
[2022-01-30 04:52] LABS: Basophils % 0.6 %; Eosinophils # 0.1 K/mcL (0.0-0.6); Eosinophils % 2.3 %; Hematocrit 30.9 % (37.5-50.1); Hemoglobin 10.5 g/dL (12.9-16.9); Immature Granulocytes % 0.2 % (0-4); Lymphocytes # 1.7 K/mcL (0.6-4.6); Lymphocytes % 32.4 %; Mean Corpuscular Hemoglobin 31.5 pg (28.0-33.3); Mean Corpuscular Volume 92.8 fL (83.0-100.0); Mean Platelet Volume 11.4 fL (9.4-12.4); Monocytes # 0.5 K/mcL (0.0-1.3); Monocytes % 9.7 %; Neutrophils # 2.9 K/mcL (1.6-8.9); Platelet Count 162 K/mcL (140-400); Red Blood Count 3.33 M/mcL (4.19-5.50); Red Cell Distribution Width 12.8 % (11.5-14.5); Segmented Neutrophils % 54.8 %; White Blood Count 5.3 K/mcL (4.3-11.1)
[2022-01-30 05:11] LABS: Alanine Aminotransferase 47 Units/L (7-52); Albumin 3.7 g/dL (3.5-5.7); Albumin/Globulin Ratio 1.5 (1.1-2.2); Alkaline Phosphatase 123 Units/L (34-104); Aspartate Amino Transferase 29 Units/L (13-39); BUN/Creatinine Ratio 26 (6-26); Bilirubin,Total 0.5 mg/dL (0.3-1.0); Blood Urea Nitrogen 20 mg/dL (8-23); Calcium 9.1 mg/dL (8.6-10.3); Carbon Dioxide 26 mEq/L (23-29); Chloride 103 mEq/L (98-107); Globulin 2.5 g/dL (2.4-3.5); Glucose 174 mg/dL (70-105); Osmolality,Calculated 287 (280-300); Sodium 135 mEq/L (136-145); Total Protein 6.2 g/dL (6.4-8.9); eGFR For African Americans > 60 (> 60); eGFR For Non-African Americans > 60 (> 60)
[2022-01-30 05:12] LABS: Digoxin 0.7 ng/mL (0.8-2.0); Magnesium 2.1 mg/dL (1.6-2.6)
[2022-01-30] MEDS ORDERED: *HR* Digoxin 0.5 MG/2 ML AMPUL IVP ONE (08:02)
[2022-01-30] MEDS: Heparin 25,000UNIT/250ML 1/2NS 25,000 UNIT/250 ML IV.SOLN IVC SCH (09:16)
[2022-01-30] MEDS: Spironolactone 12.5 MG TABLET PO SCH (09:16)
[2022-01-30] MEDS: Gabapentin 300 MG CAPSULE PO SCH ×2 (09:17→21:13)
[2022-01-30] MEDS: Furosemide 20 MG TABLET PO SCH (09:17)
[2022-01-30] MEDS: Insulin LISPRO 300 UNITS/3 ML VIAL SUBQ SCH ×4 (09:25→21:57)
[2022-01-30] MEDS: Amiodarone Premix 360 MG/200 ML BAG IVC SCH (10:07)
[2022-01-30] MEDS ORDERED: ISOVUE-370 200 ML INFUS..BTL ONE (12:15)
[2022-01-30] MEDS ORDERED: Nitroglycerin 1,000 MCG/5 ML VIAL IV ONE (12:15)
[2022-01-30] MEDS ORDERED: *HR* Heparin 10,000 UNIT/10 ML VIAL ONE ×2 (12:15→13:00)
[2022-01-30] MEDS ORDERED: Heparin 1,000 UNITS/500 mL 500 ML ONE (12:15)
[2022-01-30] MEDS ORDERED: 0.9 % Sodium Chloride 2,000 ML ONE (12:15)
[2022-01-30] MEDS ORDERED: *HR* FentaNYL (PF) 100 MCG/2 ML VIAL ONE (12:31)
[2022-01-30] MEDS ORDERED: *HR* Midazolam HCl 2 MG/2 ML VIAL ONE (12:31)
[2022-01-30] MEDS: Apixaban 5 MG TABLET PO SCH (21:13)
[2022-01-31] MEDS: Heparin 25,000UNIT/250ML 1/2NS 25,000 UNIT/250 ML IV.SOLN IVC SCH (01:22)
[2022-01-31] MEDS: Amiodarone Premix 360 MG/200 ML BAG IVC SCH (01:23)
[2022-01-31 05:06] LABS: Hematocrit 31.2 % (37.5-50.1); Hemoglobin 10.8 g/dL (12.9-16.9); Mean Corpuscular HGB Conc 34.6 g/dL (31.6-35.5); Mean Corpuscular Hemoglobin 31.5 pg (28.0-33.3); Mean Platelet Volume 11.1 fL (9.4-12.4); Platelet Count 161 K/mcL (140-400); Red Blood Count 3.43 M/mcL (4.19-5.50); Red Cell Distribution Width 12.6 % (11.5-14.5); White Blood Count 5.6 K/mcL (4.3-11.1)
[2022-01-31 05:25] LABS: BUN/Creatinine Ratio 20 (6-26); Blood Urea Nitrogen 15 mg/dL (8-23); Calcium 9.1 mg/dL (8.6-10.3); Carbon Dioxide 26 mEq/L (23-29); Chloride 102 mEq/L (98-107); Glucose 224 mg/dL (70-105); Osmolality,Calculated 288 (280-300); Sodium 135 mEq/L (136-145); eGFR For African Americans > 60 (> 60); eGFR For Non-African Americans > 60 (> 60)
[2022-01-31] MEDS: Spironolactone 12.5 MG TABLET PO SCH (08:47)
[2022-01-31] MEDS: *HR* Digoxin 0.125 MG TABLET PO SCH (08:47)
[2022-01-31] MEDS: Furosemide 20 MG TABLET PO SCH (08:48)
[2022-01-31] MEDS: Gabapentin 300 MG CAPSULE PO SCH ×2 (08:48→20:21)
[2022-01-31] MEDS: Apixaban 5 MG TABLET PO SCH ×2 (08:48→20:21)
[2022-01-31] MEDS: Insulin LISPRO 300 UNITS/3 ML VIAL SUBQ SCH ×4 (08:48→20:22)
[2022-01-31] MEDS ORDERED: Metoprolol XL (24 HR) Succ 25 MG TAB.ER.24H PO SCH (09:15)
[2022-01-31] MEDS: *HR* Amiodarone 200 MG TABLET PO SCH (13:10)
[2022-01-31] MEDS ORDERED: Metoprolol XL (24 HR) Succ 25 MG TAB.ER.24H PO ONE (14:15)
[2022-01-31] MEDS: Metoprolol XL (24 HR) Succ 50 MG TAB.ER.24H PO SCH (20:21)
[2022-01-31] MEDS ORDERED: Insulin DETEMIR 100 UNIT/ML X5UNITS SUBQ SCH (21:00)
[2022-02-01] MEDS: Furosemide 20 MG TABLET PO SCH (08:48)
[2022-02-01] MEDS: Metoprolol XL (24 HR) Succ 50 MG TAB.ER.24H PO SCH (08:48)
[2022-02-01] MEDS: Spironolactone 12.5 MG TABLET PO SCH (08:48)
[2022-02-01] MEDS: *HR* Amiodarone 200 MG TABLET PO SCH (08:48)
[2022-02-01] MEDS: *HR* Digoxin 0.125 MG TABLET PO SCH (08:48)
[2022-02-01] MEDS: Gabapentin 300 MG CAPSULE PO SCH (08:49)
[2022-02-01] MEDS: Apixaban 5 MG TABLET PO SCH (08:49)
[2022-02-01] MEDS: Insulin LISPRO 300 UNITS/3 ML VIAL SUBQ SCH (08:51)
[2022-02-01 10:58] VITALS: BP 132/66; PULSE 84; TEMP 97.9; O2SAT 96
== END 2022-02-01 12:34 | disposition home or self-care (01) | DRG 246 ==
LOC: 3BNU → SUATTDRO 17:03 → 2NENU 01-29 16:03 → SUATTDRO 01-29 16:43
PROVIDERS: ADMIT Internal Medicine; ATTEND Internal Medicine

== ENCOUNTER 2022-02-13 06:03 | Inpatient (IN) ==
[2022-02-13] MEDS ORDERED: Papaverine 60 MG/2 ML VIAL IVP ONE (06:20)
[2022-02-13] MEDS ORDERED: CeFAZolin Syr 2,000MG/20 ML 2,000 MG/20 ML SYRINGE IVPB ONE (06:20)
[2022-02-13] MEDS ORDERED: Aspirin 81 MG TAB.CHEW PO ONE ×2 (06:22→15:00)
[2022-02-13] MEDS ORDERED: Vancomycin 1,500 MG/265 ML IV.SOLN IVPB ONE (06:23)
[2022-02-13] MEDS ORDERED: Ringers Solution, Lactated 1,000 ML IVC SCH (06:30)
[2022-02-13] MEDS: Chlorhexidine Rinse 15 ML MOUTHWASH MM SCH ×3 (06:52→20:08)
[2022-02-13] MEDS ORDERED: Buckersberg's Blood Cardioplegia PF ONE (07:00)
[2022-02-13] MEDS ORDERED: Heparin 15,000 UNIT in 0.9 % Sodium Chloride 500 ML IV ONE (07:00)
[2022-02-13] MEDS ORDERED: Norepinephrine 4 MG in 0.9 % Sodium Chloride 250 ML IVC PRN (07:00)
[2022-02-13] MEDS ORDERED: del Nido Cardioplegia Solution PF ONE ×2 (07:00)
[2022-02-13] MEDS ORDERED: *HR* FentaNYL (PF) 100 MCG/2 ML VIAL IVP PRN (09:41)
[2022-02-13] MEDS ORDERED: Calcium Gluconate 1gm/50mL 1 GM/50 ML BAG IVPB PRN (09:41)
[2022-02-13] MEDS ORDERED: Potassium Chloride 40 MEQ/200 ML BAG IVPB PRN (09:41)
[2022-02-13] MEDS ORDERED: *HR* Dextrose 50 % in Water (Syg) 50 ML SYRINGE IVP PRN (09:41)
[2022-02-13 09:46] LABS: ABG Base Excess -1 mEq/L (-2 to 3); ABG Chloride 101 mEq/L (98-107); ABG Glucose 169 mg/dL (60-95); ABG HCO3 26 mEq/L (21-27); ABG Ionized Calcium 1.23 mmol/L (1.15-1.35); ABG Oxygen Saturation 100 % (95-98); ABG PCO2 52 mmHg (35-45); ABG PO2 536 mmHg (85-104); ABG TCO2 27 mEq/L (20-26)
[2022-02-13] MEDS ORDERED: *HR* Heparin 10,000 UNIT/10 ML VIAL IR ONE (10:22)
[2022-02-13] MEDS ORDERED: *HR* Phenylephrine 10 MG/ML VIAL IVC ONE (10:22)
[2022-02-13] MEDS ORDERED: Heparin 1,000 UNITS/500 mL IV.SOLN IR ONE (10:22)
[2022-02-13 10:50] LABS: ABG Base Excess -3 mEq/L (-2 to 3); ABG Chloride 103 mEq/L (98-107); ABG Glucose 240 mg/dL (60-95); ABG HCO3 23 mEq/L (21-27); ABG Ionized Calcium 1.12 mmol/L (1.15-1.35); ABG Oxygen Saturation 96 % (95-98); ABG PCO2 45 mmHg (35-45); ABG PH 7.31 pH Units (7.32-7.45); ABG PO2 90 mmHg (85-104); ABG TCO2 24 mEq/L (20-26)
[2022-02-13] MEDS ORDERED: Ketorolac 30 MG/ML VIAL ONE (11:06)
[2022-02-13] MEDS ORDERED: Ondansetron 4 MG/2 ML VIAL ONE (11:08)
[2022-02-13] MEDS: *HR* FentaNYL (PF) 100 MCG/2 ML VIAL IVP PRN ×3 (11:37→20:15)
[2022-02-13] MEDS: Insulin Regular, Human 100 UNIT/ML IV PRN ×6 (11:42→16:21)
[2022-02-13] MEDS: niCARdipine 20 MG/200 ML MLS IVC SCH ×4 (11:43→22:51)
[2022-02-13] MEDS: Albumin Human 5% 12.5 GM/250 ML IV.SOLN IVPB PRN ×6 (12:05→12:44)
[2022-02-13] MEDS: DOBUTamine 1,000 MG/250 ML BAG IVC SCH (12:19)
[2022-02-13] MEDS: Pantoprazole 40 MG VIAL IVP SCH (12:40)
[2022-02-13 12:41] LABS: ABG Base Excess -4 mEq/L (-2 to 3); ABG HCO3 22 mEq/L (21-27); ABG Oxygen Saturation 100 % (95-98); ABG PCO2 43 mmHg (35-45); ABG PH 7.31 pH Units (7.32-7.45); ABG PO2 232 mmHg (85-104); ABG TCO2 23 mEq/L (20-26)
[2022-02-13 12:51] LABS: Basophils % 0.3 %; Eosinophils % 0.4 %; Hematocrit 24.9 % (37.5-50.1); Hemoglobin 8.6 g/dL (12.9-16.9); Immature Granulocytes % 0.7 % (0-4); Lymphocytes % 9.3 %; Mean Corpuscular HGB Conc 34.5 g/dL (31.6-35.5); Mean Corpuscular Volume 92.6 fL (83.0-100.0); Monocytes # 0.1 K/mcL (0.0-1.3); Monocytes % 1.1 %; Neutrophils # 9.8 K/mcL (1.6-8.9); Platelet Count 131 K/mcL (140-400); Red Blood Count 2.69 M/mcL (4.19-5.50); Red Cell Distribution Width 12.9 % (11.5-14.5); Segmented Neutrophils % 88.2 %; White Blood Count 11.1 K/mcL (4.3-11.1)
[2022-02-13 12:59] LABS: INR 1.3
[2022-02-13 13:02] LABS: Activated Partial Thrombo Time 33.5 Seconds (26.0-36.0)
[2022-02-13] MEDS ORDERED: Amiodarone Premix 360 MG/200 ML BAG IVC ONE (13:24)
[2022-02-13] MEDS ORDERED: Amiodarone Premix 150 MG/100 ML BAG IVPB ONE (13:24)
[2022-02-13] MEDS: Norepinephrine 4 MG/254 ML IV.SOLN IVC SCH (13:45)
[2022-02-13 13:47] LABS: BUN/Creatinine Ratio 26 (6-26); Blood Urea Nitrogen 18 mg/dL (8-23); Calcium 8.8 mg/dL (8.6-10.3); Carbon Dioxide 22 mEq/L (23-29); Chloride 102 mEq/L (98-107); Glucose 264 mg/dL (70-105); Magnesium 1.7 mg/dL (1.6-2.6); Osmolality,Calculated 289 (280-300); Potassium 3.6 mEq/L (3.5-5.1); Sodium 134 mEq/L (136-145); eGFR For African Americans > 60 (> 60); eGFR For Non-African Americans > 60 (> 60)
[2022-02-13] MEDS: *HR* OxyCODONE/APAP 5/325 TABLET PO PRN ×2 (14:07→20:15)
[2022-02-13] MEDS: Gabapentin 400 MG CAPSULE PO SCH ×3 (14:07→20:09)
[2022-02-13] MEDS ORDERED: Metoclopramide 10 MG/2 ML VIAL IVP ONE (16:10)
[2022-02-13] MEDS ORDERED: *HR* Metoprolol 5 MG/5 ML VIAL IVP ONE (16:15)
[2022-02-13] MEDS: CeFAZolin 2 GM/120 ML BAG IVPB SCH ×2 (16:36→23:19)
[2022-02-13] MEDS: Amiodarone Premix 360 MG/200 ML BAG IVC SCH (19:53)
[2022-02-13 23:26] LABS: VBG Ionized Calcium 1.15 mmol/L (1.15-1.35)
[2022-02-13 23:43] LABS: BUN/Creatinine Ratio 23 (6-26); Blood Urea Nitrogen 14 mg/dL (8-23); Calcium 8.9 mg/dL (8.6-10.3); Carbon Dioxide 25 mEq/L (23-29); Chloride 101 mEq/L (98-107); Glucose 121 mg/dL (70-105); Magnesium 2.2 mg/dL (1.6-2.6); Osmolality,Calculated 278 (280-300); Potassium 3.9 mEq/L (3.5-5.1); Sodium 133 mEq/L (136-145); eGFR For African Americans > 60 (> 60); eGFR For Non-African Americans > 60 (> 60)
[2022-02-14] MEDS: *HR* FentaNYL (PF) 100 MCG/2 ML VIAL IVP PRN ×2 (00:44→07:51)
[2022-02-14] MEDS: Ondansetron 4 MG/2 ML VIAL IVP PRN ×4 (01:36→21:45)
[2022-02-14] MEDS: *HR* OxyCODONE/APAP 5/325 TABLET PO PRN ×2 (01:42→08:46)
[2022-02-14 03:40] LABS: Basophils % 0.1 %; Hematocrit 22.8 % (37.5-50.1); Hemoglobin 8.1 g/dL (12.9-16.9); Immature Granulocytes % 0.4 % (0-4); Lymphocytes # 0.4 K/mcL (0.6-4.6); Lymphocytes % 3.8 %; Mean Corpuscular HGB Conc 35.5 g/dL (31.6-35.5); Mean Corpuscular Hemoglobin 32.8 pg (28.0-33.3); Mean Corpuscular Volume 92.3 fL (83.0-100.0); Mean Platelet Volume 10.9 fL (9.4-12.4); Monocytes % 9.4 %; Platelet Count 138 K/mcL (140-400); Red Blood Count 2.47 M/mcL (4.19-5.50); Red Cell Distribution Width 13.1 % (11.5-14.5); Segmented Neutrophils % 86.3 %; White Blood Count 10.4 K/mcL (4.3-11.1)
[2022-02-14 03:49] LABS: INR 1.3; Prothrombin Time 14.6 Seconds (9.4-12.1)
[2022-02-14 03:52] LABS: Activated Partial Thrombo Time 26.9 Seconds (26.0-36.0)
[2022-02-14 03:59] LABS: BUN/Creatinine Ratio 21 (6-26); Blood Urea Nitrogen 14 mg/dL (8-23); Calcium 8.9 mg/dL (8.6-10.3); Carbon Dioxide 24 mEq/L (23-29); Chloride 100 mEq/L (98-107); Glucose 166 mg/dL (70-105); Magnesium 2.2 mg/dL (1.6-2.6); Osmolality,Calculated 280 (280-300); Potassium 3.9 mEq/L (3.5-5.1); Sodium 133 mEq/L (136-145); eGFR For African Americans > 60 (> 60); eGFR For Non-African Americans > 60 (> 60)
[2022-02-14] MEDS: Norepinephrine 4 MG/254 ML IV.SOLN IVC SCH ×2 (05:31→22:16)
[2022-02-14] MEDS: *HR* Enoxaparin 40 MG/0.4 ML SYRINGE SQ SCH (06:00)
[2022-02-14] MEDS: Amiodarone Premix 360 MG/200 ML BAG IVC SCH (07:44)
[2022-02-14] MEDS: Albumin Human 5% 12.5 GM/250 ML IV.SOLN IVPB PRN ×4 (07:45→10:45)
[2022-02-14] MEDS: Pantoprazole 40 MG VIAL IVP SCH (07:45)
[2022-02-14] MEDS: Gabapentin 400 MG CAPSULE PO SCH (07:46)
[2022-02-14] MEDS: Chlorhexidine Rinse 15 ML MOUTHWASH MM SCH ×2 (07:46→19:44)
[2022-02-14] MEDS: Aspirin Enteric Coated 81 MG Tablet PO SCH (08:06)
[2022-02-14] MEDS: CeFAZolin 2 GM/120 ML BAG IVPB SCH ×3 (08:06→23:17)
[2022-02-14] MEDS: niCARdipine 20 MG/200 ML MLS IVC SCH ×7 (08:08→23:25)
[2022-02-14] MEDS: Metoprolol XL (24 HR) Succ 50 MG TAB.ER.24H PO SCH ×2 (10:55→19:45)
[2022-02-14] MEDS: *HR* Amiodarone 200 MG TABLET PO SCH (12:21)
[2022-02-14] MEDS: Acetaminophen 325 MG TABLET PO PRN (14:26)
[2022-02-14] MEDS: Ketorolac 30 MG/ML VIAL IVP SCH ×3 (14:32→23:18)
[2022-02-14] MEDS ORDERED: *HR* Dextrose 50 % in Water (Syg) 50 ML SYRINGE IVP PRN (15:21)
[2022-02-14] MEDS ORDERED: Dextrose Gel 15 GM/37.5 ML TUBE PO PRN ×2 (15:21)
[2022-02-14] MEDS ORDERED: D5% in Water 1,000 ML IVC PRN (15:21)
[2022-02-14] MEDS: DOBUTamine 1,000 MG/250 ML BAG IVC SCH (15:24)
[2022-02-14] MEDS: Insulin LISPRO 300 UNITS/3 ML VIAL SUBQ SCH ×2 (15:46→19:50)
[2022-02-14] MEDS: Gabapentin 300 MG CAPSULE PO SCH (19:44)
[2022-02-15 03:53] LABS: Basophils # 0.1 K/mcL (0.0-0.2); Basophils % 0.4 %; Eosinophils % 0.2 %; Hematocrit 22.5 % (37.5-50.1); Hemoglobin 7.6 g/dL (12.9-16.9); Immature Granulocytes % 0.3 % (0-4); Lymphocytes # 1.5 K/mcL (0.6-4.6); Lymphocytes % 12.7 %; Mean Corpuscular HGB Conc 33.8 g/dL (31.6-35.5); Mean Corpuscular Hemoglobin 32.1 pg (28.0-33.3); Mean Corpuscular Volume 94.9 fL (83.0-100.0); Mean Platelet Volume 11.5 fL (9.4-12.4); Monocytes # 1.6 K/mcL (0.0-1.3); Monocytes % 13.8 %; Neutrophils # 8.6 K/mcL (1.6-8.9); Platelet Count 178 K/mcL (140-400); Red Blood Count 2.37 M/mcL (4.19-5.50); Red Cell Distribution Width 13.5 % (11.5-14.5); Segmented Neutrophils % 72.6 %; White Blood Count 11.8 K/mcL (4.3-11.1)
[2022-02-15 04:07] LABS: BUN/Creatinine Ratio 14 (6-26); Blood Urea Nitrogen 12 mg/dL (8-23); Calcium 9.1 mg/dL (8.6-10.3); Carbon Dioxide 25 mEq/L (23-29); Chloride 98 mEq/L (98-107); Glucose 293 mg/dL (70-105); Magnesium 2.1 mg/dL (1.6-2.6); Osmolality,Calculated 281 (280-300); Potassium 4.3 mEq/L (3.5-5.1); Sodium 130 mEq/L (136-145); eGFR For African Americans > 60 (> 60); eGFR For Non-African Americans > 60 (> 60)
[2022-02-15] MEDS: niCARdipine 20 MG/200 ML MLS IVC SCH ×4 (04:17→18:04)
[2022-02-15] MEDS: *HR* Enoxaparin 40 MG/0.4 ML SYRINGE SQ SCH (04:28)
[2022-02-15] MEDS ORDERED: Insulin DETEMIR 100 UNIT/ML X5UNITS SUBQ ONE (07:40)
[2022-02-15] MEDS: Gabapentin 300 MG CAPSULE PO SCH ×2 (07:57→20:02)
[2022-02-15] MEDS: Chlorhexidine Rinse 15 ML MOUTHWASH MM SCH ×2 (07:58→20:01)
[2022-02-15] MEDS: Metoprolol XL (24 HR) Succ 50 MG TAB.ER.24H PO SCH ×2 (07:58→20:02)
[2022-02-15] MEDS: *HR* Amiodarone 200 MG TABLET PO SCH ×2 (07:58→20:02)
[2022-02-15] MEDS: CeFAZolin 2 GM/120 ML BAG IVPB SCH (07:58)
[2022-02-15] MEDS: Pantoprazole 40 MG VIAL IVP SCH (07:58)
[2022-02-15] MEDS: Aspirin Enteric Coated 81 MG Tablet PO SCH (07:58)
[2022-02-15] MEDS: Insulin LISPRO 300 UNITS/3 ML VIAL SUBQ SCH ×4 (08:24→19:35)
[2022-02-15] MEDS ORDERED: Albumin 25% 25gram/100mL 25 GM/100 ML IV.SOLN IVPB ONE (10:09)
[2022-02-15] MEDS ORDERED: 0.9 % Sodium Chloride 1,000 ML ONE (11:02)
[2022-02-15] MEDS: Norepinephrine 4 MG/254 ML IV.SOLN IVC SCH ×3 (11:22→23:02)
[2022-02-15] MEDS: DOBUTamine 1,000 MG/250 ML BAG IVC SCH (11:43)
[2022-02-15] MEDS: Acetaminophen 325 MG TABLET PO PRN (15:35)
[2022-02-15 17:12] LABS: Hemoglobin 7.8 g/dL (12.9-16.9)
[2022-02-15] MEDS: Insulin DETEMIR 100 UNIT/ML X5UNITS SUBQ SCH (19:34)
[2022-02-16] MEDS: Acetaminophen 325 MG TABLET PO PRN (00:09)
[2022-02-16 03:24] LABS: Basophils % 0.4 %; Hemoglobin 7.6 g/dL (12.9-16.9); Mean Platelet Volume 11.4 fL (9.4-12.4)
[2022-02-16 03:26] LABS: Eosinophils # 0.1 K/mcL (0.0-0.6); Eosinophils % 0.5 %; Immature Granulocytes % 0.3 % (0-4); Immature Platelets 7.3 % (1.1-6.1); Lymphocytes # 1.6 K/mcL (0.6-4.6); Lymphocytes % 15.3 %; Mean Corpuscular Hemoglobin 31.1 pg (28.0-33.3); Mean Corpuscular Volume 94.3 fL (83.0-100.0); Monocytes # 1.2 K/mcL (0.0-1.3); Platelet Count 138 K/mcL (140-400); Red Blood Count 2.44 M/mcL (4.19-5.50); Red Cell Distribution Width 14.4 % (11.5-14.5); Segmented Neutrophils % 72.5 %; White Blood Count 10.5 K/mcL (4.3-11.1)
[2022-02-16 03:30] LABS: Neutrophils # 7.6 K/mcL (1.6-8.9)
[2022-02-16 03:42] LABS: BUN/Creatinine Ratio 14 (6-26); Blood Urea Nitrogen 12 mg/dL (8-23); Calcium 8.8 mg/dL (8.6-10.3); Carbon Dioxide 26 mEq/L (23-29); Chloride 98 mEq/L (98-107); Glucose 198 mg/dL (70-105); Magnesium 2.2 mg/dL (1.6-2.6); Osmolality,Calculated 277 (280-300); Sodium 131 mEq/L (136-145); eGFR For African Americans > 60 (> 60); eGFR For Non-African Americans > 60 (> 60)
[2022-02-16] MEDS: *HR* Enoxaparin 40 MG/0.4 ML SYRINGE SQ SCH (05:10)
[2022-02-16] MEDS: Pantoprazole 40 MG VIAL IVP SCH (08:35)
[2022-02-16] MEDS: *HR* Amiodarone 200 MG TABLET PO SCH ×2 (08:35→20:00)
[2022-02-16] MEDS: Gabapentin 300 MG CAPSULE PO SCH ×2 (08:35→20:00)
[2022-02-16] MEDS: Metoprolol XL (24 HR) Succ 50 MG TAB.ER.24H PO SCH ×2 (08:35→19:18)
[2022-02-16] MEDS: Insulin LISPRO 300 UNITS/3 ML VIAL SUBQ SCH ×4 (08:36→20:00)
[2022-02-16] MEDS: Insulin DETEMIR 100 UNIT/ML X5UNITS SUBQ SCH ×2 (08:36→17:38)
[2022-02-16] MEDS: Chlorhexidine Rinse 15 ML MOUTHWASH MM SCH ×2 (08:36→20:00)
[2022-02-16] MEDS: Aspirin Enteric Coated 81 MG Tablet PO SCH (08:36)
[2022-02-16] MEDS: niCARdipine 20 MG/200 ML MLS IVC SCH (09:46)
[2022-02-16] MEDS: DOBUTamine 1,000 MG/250 ML BAG IVC SCH (09:46)
[2022-02-16] MEDS ORDERED: Insulin DETEMIR 100 UNIT/ML X5UNITS SUBQ ONE (11:50)
[2022-02-16 16:41] LABS: Hematocrit 22.8 % (37.5-50.1); Hemoglobin 7.8 g/dL (12.9-16.9)
[2022-02-16] MEDS: Norepinephrine 4 MG/254 ML IV.SOLN IVC SCH (17:15)
[2022-02-16] MEDS ORDERED: Insulin DETEMIR 100 UNIT/ML X5UNITS SUBQ SCH (21:00)
[2022-02-17 03:11] LABS: Basophils % 0.4 %; Eosinophils # 0.1 K/mcL (0.0-0.6); Eosinophils % 1.4 %; Hematocrit 21.7 % (37.5-50.1); Hemoglobin 7.3 g/dL (12.9-16.9); Immature Granulocytes % 0.3 % (0-4); Immature Platelets 7.3 % (1.1-6.1); Lymphocytes # 1.3 K/mcL (0.6-4.6); Lymphocytes % 16.2 %; Mean Corpuscular HGB Conc 33.6 g/dL (31.6-35.5); Mean Corpuscular Hemoglobin 31.2 pg (28.0-33.3); Mean Corpuscular Volume 92.7 fL (83.0-100.0); Mean Platelet Volume 11.4 fL (9.4-12.4); Monocytes # 0.8 K/mcL (0.0-1.3); Neutrophils # 5.7 K/mcL (1.6-8.9); Platelet Count 148 K/mcL (140-400); Red Blood Count 2.34 M/mcL (4.19-5.50); Red Cell Distribution Width 14.2 % (11.5-14.5); Segmented Neutrophils % 71.7 %; White Blood Count 7.9 K/mcL (4.3-11.1)
[2022-02-17 03:28] LABS: BUN/Creatinine Ratio 18 (6-26); Blood Urea Nitrogen 16 mg/dL (8-23); Calcium 8.7 mg/dL (8.6-10.3); Carbon Dioxide 28 mEq/L (23-29); Chloride 98 mEq/L (98-107); Glucose 97 mg/dL (70-105); Magnesium 2.1 mg/dL (1.6-2.6); Osmolality,Calculated 273 (280-300); Potassium 3.8 mEq/L (3.5-5.1); Sodium 131 mEq/L (136-145); eGFR For African Americans > 60 (> 60); eGFR For Non-African Americans > 60 (> 60)
[2022-02-17] MEDS: *HR* Enoxaparin 40 MG/0.4 ML SYRINGE SQ SCH (05:07)
[2022-02-17] MEDS: Insulin LISPRO 300 UNITS/3 ML VIAL SUBQ SCH ×4 (08:18→20:22)
[2022-02-17] MEDS: Norepinephrine 4 MG/254 ML IV.SOLN IVC SCH (08:18)
[2022-02-17] MEDS: Pantoprazole 40 MG VIAL IVP SCH (08:27)
[2022-02-17] MEDS: Aspirin Enteric Coated 81 MG Tablet PO SCH (08:29)
[2022-02-17] MEDS: Insulin DETEMIR 100 UNIT/ML X5UNITS SUBQ SCH ×2 (08:29→20:22)
[2022-02-17] MEDS: Metoprolol XL (24 HR) Succ 50 MG TAB.ER.24H PO SCH ×2 (08:29→08:45)
[2022-02-17] MEDS: Chlorhexidine Rinse 15 ML MOUTHWASH MM SCH ×3 (08:29→20:21)
[2022-02-17] MEDS: Gabapentin 300 MG CAPSULE PO SCH ×2 (08:29→20:22)
[2022-02-17] MEDS: *HR* Amiodarone 200 MG TABLET PO SCH ×2 (08:29→20:21)
[2022-02-17] MEDS ORDERED: Metoprolol XL (24 HR) Succ 25 MG TAB.ER.24H PO ONE (08:35)
[2022-02-17] MEDS ORDERED: *HR* HYDROcodone/Acet 5/325 mg TABLET PO PRN (08:35)
[2022-02-17] MEDS: Famotidine 20 MG TABLET PO SCH ×2 (08:47→20:21)
[2022-02-17] MEDS ORDERED: Metoprolol XL (24 HR) Succ 25 MG TAB.ER.24H PO SCH (09:00)
[2022-02-18 03:52] LABS: Basophils % 0.6 %; Eosinophils # 0.3 K/mcL (0.0-0.6); Hematocrit 22.4 % (37.5-50.1); Hemoglobin 7.5 g/dL (12.9-16.9); Immature Granulocytes % 0.3 % (0-4); Lymphocytes # 0.9 K/mcL (0.6-4.6); Lymphocytes % 13.6 %; Mean Corpuscular HGB Conc 33.5 g/dL (31.6-35.5); Mean Corpuscular Hemoglobin 31.4 pg (28.0-33.3); Mean Corpuscular Volume 93.7 fL (83.0-100.0); Mean Platelet Volume 11.5 fL (9.4-12.4); Monocytes # 0.7 K/mcL (0.0-1.3); Monocytes % 10.5 %; Neutrophils # 4.6 K/mcL (1.6-8.9); Platelet Count 152 K/mcL (140-400); Red Blood Count 2.39 M/mcL (4.19-5.50); Red Cell Distribution Width 13.8 % (11.5-14.5); White Blood Count 6.5 K/mcL (4.3-11.1)
[2022-02-18 04:09] LABS: BUN/Creatinine Ratio 19 (6-26); Blood Urea Nitrogen 18 mg/dL (8-23); Calcium 8.7 mg/dL (8.6-10.3); Carbon Dioxide 27 mEq/L (23-29); Chloride 99 mEq/L (98-107); Glucose 136 mg/dL (70-105); Osmolality,Calculated 278 (280-300); Potassium 3.8 mEq/L (3.5-5.1); Sodium 132 mEq/L (136-145); eGFR For African Americans > 60 (> 60); eGFR For Non-African Americans > 60 (> 60)
[2022-02-18] MEDS: *HR* Enoxaparin 40 MG/0.4 ML SYRINGE SQ SCH (05:03)
[2022-02-18] MEDS: Insulin DETEMIR 100 UNIT/ML X5UNITS SUBQ SCH ×3 (07:44→21:38)
[2022-02-18] MEDS: Gabapentin 300 MG CAPSULE PO SCH ×3 (07:44→21:32)
[2022-02-18] MEDS: *HR* Amiodarone 200 MG TABLET PO SCH ×3 (07:45→21:31)
[2022-02-18] MEDS: Aspirin Enteric Coated 81 MG Tablet PO SCH ×2 (07:45→08:30)
[2022-02-18] MEDS: Metoprolol XL (24 HR) Succ 50 MG TAB.ER.24H PO SCH ×2 (07:45→08:31)
[2022-02-18] MEDS: Famotidine 20 MG TABLET PO SCH ×3 (07:46→21:32)
[2022-02-18] MEDS: Insulin LISPRO 300 UNITS/3 ML VIAL SUBQ SCH ×3 (08:06→16:49)
[2022-02-18] MEDS ORDERED: *HR* HYDROcodone/Acet 5/325 mg TABLET PO PRN (08:10)
[2022-02-18] MEDS ORDERED: Dextrose Gel 15 GM/37.5 ML TUBE PO PRN ×2 (08:10)
[2022-02-18] MEDS ORDERED: D5% in Water 1,000 ML IVC PRN (08:10)
[2022-02-18] MEDS ORDERED: Ondansetron 4 MG/2 ML VIAL IVP PRN (08:10)
[2022-02-18] MEDS ORDERED: *HR* Dextrose 50 % in Water (Syg) 50 ML SYRINGE IVP PRN (08:10)
[2022-02-18] MEDS ORDERED: Acetaminophen 325 MG TABLET PO PRN (08:10)
[2022-02-18] MEDS: Spironolactone 12.5 MG TABLET PO SCH (08:29)
[2022-02-18] MEDS: Furosemide 20 MG TABLET PO SCH (08:30)
[2022-02-18] MEDS ORDERED: Spironolactone 12.5 MG TABLET PO SCH (09:00)
[2022-02-18] MEDS ORDERED: Furosemide 20 MG TABLET PO SCH (09:00)
[2022-02-18] MEDS ORDERED: *HR* Heparin 5,000 UNIT/ML VIAL SQ SCH (14:00)
[2022-02-18] MEDS ORDERED: Insulin LISPRO 300 UNITS/3 ML VIAL SUBQ SCH (21:00)
[2022-02-19] MEDS ORDERED: *HR* Enoxaparin 40 MG/0.4 ML SYRINGE SQ SCH (06:00)
[2022-02-19] MEDS: *HR* Amiodarone 200 MG TABLET PO SCH (07:40)
[2022-02-19] MEDS: Gabapentin 300 MG CAPSULE PO SCH (07:40)
[2022-02-19] MEDS: Aspirin Enteric Coated 81 MG Tablet PO SCH (07:40)
[2022-02-19] MEDS: Metoprolol XL (24 HR) Succ 50 MG TAB.ER.24H PO SCH (07:40)
[2022-02-19] MEDS: Famotidine 20 MG TABLET PO SCH (07:40)
[2022-02-19] MEDS: Furosemide 20 MG TABLET PO SCH (07:40)
[2022-02-19] MEDS: Insulin DETEMIR 100 UNIT/ML X5UNITS SUBQ SCH (07:43)
[2022-02-19] MEDS: Insulin LISPRO 300 UNITS/3 ML VIAL SUBQ SCH ×2 (07:49→11:56)
[2022-02-19] MEDS: Spironolactone 12.5 MG TABLET PO SCH (07:49)
[2022-02-19 08:07] LABS: Basophils % 0.5 %; Eosinophils # 0.3 K/mcL (0.0-0.6); Eosinophils % 4.7 %; Hematocrit 23.1 % (37.5-50.1); Hemoglobin 7.6 g/dL (12.9-16.9); Immature Granulocytes % 0.3 % (0-4); Lymphocytes % 16.8 %; Mean Corpuscular HGB Conc 32.9 g/dL (31.6-35.5); Mean Corpuscular Volume 94.3 fL (83.0-100.0); Monocytes # 0.7 K/mcL (0.0-1.3); Monocytes % 11.6 %; Platelet Count 177 K/mcL (140-400); Red Blood Count 2.45 M/mcL (4.19-5.50); Segmented Neutrophils % 66.1 %
[2022-02-19 08:49] LABS: BUN/Creatinine Ratio 17 (6-26); Blood Urea Nitrogen 17 mg/dL (8-23); Carbon Dioxide 27 mEq/L (23-29); Chloride 100 mEq/L (98-107); Glucose 123 mg/dL (70-105); Osmolality,Calculated 285 (280-300); Potassium 3.7 mEq/L (3.5-5.1); Sodium 136 mEq/L (136-145); eGFR For African Americans > 60 (> 60); eGFR For Non-African Americans > 60 (> 60)
[2022-02-19 12:09] VITALS: TEMP 97.6
[2022-02-19 12:20] VITALS: BP 100/66; PULSE 121; O2SAT 96
[2022-02-20 10:29] LABS: ABG Base Excess -5 mEq/L (-2 to 3); ABG Chloride 103 mEq/L (98-107); ABG Glucose 268 mg/dL (60-95); ABG HCO3 20 mEq/L (21-27); ABG Ionized Calcium 1.31 mmol/L (1.15-1.35); ABG Oxygen Saturation 100 % (95-98); ABG PCO2 37 mmHg (35-45); ABG PH 7.35 pH Units (7.32-7.45); ABG PO2 316 mmHg (85-104); ABG TCO2 22 mEq/L (20-26)
== END 2022-02-19 13:10 | disposition home or self-care (01) | DRG 236 ==
LOC: SAMDAY 06:03 → ICNU 12:11
PROVIDERS: ADMIT Thoracic Surgery (Cardiothoracic Vascular Surgery); ATTEND Thoracic Surgery (Cardiothoracic Vascular Surgery)